=== PATIENT | female | born 1990 | race Caucasian/White ===

== ENCOUNTER 2017-05-28 12:22 | Emergency (ER) | payer OTHER ==
[2017-05-28 12:32] VITALS: BMI 24.2
[2017-05-28 13:02] VITALS: TEMP 98.6
--- NOTE | 2017-05-28 14:23 | ED PDOC ---
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 Patient complaining of pain to the lateral aspect of the left breast. She denies any chest pain or shortness of breath. She denies fevers or chills. She denies any trauma or injury. Patient states she thinks she feels a lump on the lateral aspect of the breast that has been getting bigger and smaller intermittently. No medications have been taken for pain at home. Patient denies a family history of breast cancer or ovarian cancer Time/Duration: Other (10 days) Symptom Onset: Gradual Symptom Course: Intermittent Quality: Stabbing, Throbbing Severity Level: 4 Past Medical History - Provider Review Nursing Documentation Reviewed: Yes - Travel History Have you recently traveled outside [place] w/in the past 3 mons?: No - Infectious Disease Hx of Infectious Diseases: None - Tetanus Immunization Tetanus Immunization: Unknown - Psychiatric Hx Substance Use: No - Anesthesia Hx Anesthesia: No Family/Social History - Physician Review Nursing Documentation Reviewed: Yes Family/Social History: Unknown Family HX Smoking Status: Never Smoked Hx Alcohol Use: No Hx Substance Use: No Allergies/Home Meds Allergies/Adverse Reactions: Allergies No Known Allergies Allergy (Verified 05/28/17 12:32) Review of Systems - Review of Systems Constitutional: absent: Fatigue, Fevers Respiratory: absent: SOB, Cough Cardiovascular: absent: Chest Pain, Palpitations Gastrointestinal: absent: Abdominal Pain, Diarrhea, Nausea, Vomiting Genitourinary Female: Other (Left breast pain). absent: Dysuria Musculoskeletal: absent: Arthralgias, Back Pain, Neck Pain Skin: absent: Rash, Pruritis Neurological: absent: Headache, Dizziness Physical Exam Vital Signs Reviewed: Yes Vital Signs Temp Pulse Resp BP Pulse Ox 05/28/17 14:51 76 16 119/77 99 05/28/17 13:01 98.6 F 70 18 135/68 100 Temperature: Afebrile Blood Pressure: Normal Pulse: Regular Respiratory Rate: Normal Appearance: Positive for: Well-Appearing, Non-Toxic, Comfortable Pain Distress: None Mental Status: Positive for: Alert and Oriented X 3 - Systems Exam Head: Present: Atraumatic Mouth: Present: Moist Mucous Membranes Neck: Present: Normal Range of Motion Respiratory/Chest: Present: Clear to Auscultation Cardiovascular: Present: Regular Rate and Rhythm Abdomen: No: Tenderness Breast/Axillary: Present: Symmetrical. No: Axillary Lymphad, Discoloration, Erythema, Fluctuance, Masses, Nipple Discharge, Swelling, Tender to Palpation Back: Present: Normal Inspection Upper Extremity: Present: Normal ROM Lower Extremity: Present: Normal ROM Neurological: Present: GCS=15 Skin: Present: Warm, Dry, Normal Color. No: Rashes Psychiatric: Present: Alert, Oriented x 3 Medical Decision Making ED Course and Treatment: 05/28/17 Patient is nontoxic well-appearing in no distress with stable vital signs complaining of a 10 day history of left breast pain. Left breast has no tenderness along the lateral aspect of the breast. There is no mass. There is no erythema. There is no edema. There is no axillary lymph nodes. I discussed in depth with patient the need for follow-up with a flash drier operator/ surgeon/breast specialist regarding her left-sided breast pain. I stressed the importance of immediate follow-up for possible ultrasound and MRI of the left breast. I've discussed cancer risk with the patient and stressed importance of close f/u. I've advised the patient to take Motrin as needed for pain. I advised immediate return if signs of infection develop: Redness worsening pain swelling or any abscess formation. All information was translated to the patient using the supervisor production managing telephone messenger #[phone] Impression: Breast pain Motrin every 6 hours as needed for pain Follow up with primary care physician within the next 2 days Follow-up with the breast specialist/surgeon within the next 2 days Return if symptoms worsen or persist or if new concerning symptoms develop It is very important that she follow-up with a specialist regarding your left sided breast pain. It is possible that he may need a mammogram or ultrasound for further evaluation of the breast pain. - Medication Orders Current Medication Orders: Discontinued Medications Ibuprofen (Motrin Tab) 600 mg PO STAT STA Stop: 05/28/17 14:20 Last Admin: 05/28/17 14:44 Dose: 600 mg Disposition/Present on Arrival - Present on Arrival Any Indicators Present on Arrival: No History of DVT/PE: No History of Uncontrolled Diabetes: No Urinary Catheter: No History of Decub. Ulcer: No History Surgical Site Infection Following: None - Disposition Have Diagnosis and Disposition been Completed?: Yes Diagnosis: Breast pain Disposition: HOME/ ROUTINE Disposition Time: 14:20 Patient Plan: Discharge Condition: GOOD Additional Instructions: Motrin every 6 hours as needed for pain Follow up with primary care physician within the next 2 days Follow-up with the breast specialist/surgeon within the next 2 days Return if symptoms worsen or persist or if new concerning symptoms develop It is very important that she follow-up with a specialist regarding your left sided breast pain. It is possible that he may need a mammogram or ultrasound for further evaluation of the breast pain. Prescriptions: Ibuprofen [Motrin] 600 mg PO Q6H PRN #20 tab PRN Reason: pain/fever reduction Referrals: Annie Cheatham MD [Staff Provider] - Follow up with primary Joshua Esquivel MD [Staff Provider] - [facility] [[facility] - Follow up with primary [facility] [place] [Outside] - Follow up with primary Forms: [employer] (Emirati)
[2017-05-28 14:51] VITALS: BP 119/77; PULSE 76; RESP 16; O2SAT 99
== END 2017-05-28 14:58 | disposition home or self-care (01) ==
LOC: ED 12:22
DX: N64.4 Mastodynia (principal)